=== PATIENT | male | born 2005 | race Caucasian/White ===

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

== ENCOUNTER 2024-07-11 18:45 | Emergency (ER) | payer SELFPAY ==
[2024-07-11 18:47] VITALS: BP 156/70; PULSE 87; RESP 18; TEMP 37; O2SAT 99; BMI 33.7
[2024-07-11 20:04] LABS: Absolute Lymphocyte Count 0.79 X10^3/uL (0.83-4.51); Absolute Neutrophil Count 6.1 X10^3/uL (2.0-7.7); Basophil# 0.02 X10^3/uL; Basophil% 0.3 % (0-1); Eosinophil# 0.16 X10^3/uL; Hematocrit 44.9 % (40-54); Hemoglobin 15.9 g/dL (13.0-16.5); Lymphocyte # 0.79 X10^3/ul (0.83-4.51); Lymphocyte % 10.1 % (19-41); Mean Corp Hgb Conc 35.4 g/dL (32-36); Mean Corpuscular Hgb 29.8 pg (27.0-32.0); Mean Corpuscular Volume 84.1 fL (80-94); Mean Platelet Vol. 10.4 fl (6.2-12.0); Monocyte# 0.67 X10^3/uL; Monocyte% 8.6 % (0-10); NRBC Flagged by Analyzer 0 % (0-5); Neutrophil # 6.13 X10^3/uL (2.7-7.7); Neutrophil % 78.5 % (47-70); Platelet Count 193 K/mm3 (150-450); RBC Distribution Width CV 12.1 % (11.6-14.6); RBC Distribution Width SD 36.3 fl (35.1-43.9); Red Blood Count 5.34 M/mm3 (4.6-6.2); White Blood Count 7.8 K/mm3 (4.4-11.0)
[2024-07-11 20:17] LABS: Anion Gap 8 (5-15); BUN 21 mg/dL (7-18); BUN/Creat Ratio 13.8 RATIO (10-20); Calcium,Total 9.5 mg/dL (8.5-10.1); Chloride 103 mmol/L (98-107); Creatinine, Serum 1.52 mg/dL (0.70-1.30); EST Glomerular Filtration Rate 62 mL/min (>60); Est Glom Filt Rate - Afr Amer 75 mL/min (>60); Estimated Creatinine Clearance 109.25 ml/min; Glucose 107 mg/dL (74-106); Potassium 3.9 mmol/L (3.5-5.1); Sodium Level 137 mmol/L (136-145)
[2024-07-11 21:02] VITALS: BP 154/68; PULSE 89; RESP 16; O2SAT 98
--- NOTE | 2024-07-11 21:28 | EDS_ITS ---
HPI History of Present Illness Chief Complaint: Shortness of Breath Informant: patient Narrative Narrative: Increasing cough burning in his chest with cough since yesterday. 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 Occasional tobacco. Denies asthma or COPD. Denies fevers or chills. Patient states he works for himself. Prior similar symptoms: No PFSH PFSH Medical History no medical history Home Medications ?Medication ?Instructions ?Recorded ?Last Taken ?Type NK 01/13/20 Unknown History Allergy/AdvReac Type Severity Reaction Status Date / Time amoxicillin Allergy Rash Verified 07/11/24 18:46 azithromycin (From Zithromax AdvReac DOES NOT Verified 07/11/24 18:46 Z-Dariusz) WORK Family History no significant family his Surgical History no surgical history Social History Smoking Status: Never smoker ROS ROS ED Constitutional Constitutional ED: Denies chills, fever(s) or sweats ENT ENT ED: Denies sore throat Cardiovascular Cardiovascular: Denies chest pain, leg edema, palpitations or racing heartbeat Respiratory/Chest Respiratory/Chest: Reports cough and dyspnea; Denies dyspnea on exertion Gastrointestinal Gastrointestinal: Denies abdominal pain, diarrhea, nausea or vomiting Genitourinary Genitourinary ED: Denies dysuria, hematuria or urinary frequency Musculoskeletal Musculoskeletal: Denies back pain, extremity pain or neck pain Integumentary Denies rash or wounds Neurologic Neurologic: Denies headache(s), paresthesias or weakness EXAM Physical Exam Const Vital Signs: 07/11/24 18:47 07/11/24 21:02 07/11/24 21:02 Temperature 98.6 F Temperature Source Oral Pulse Rate 87 89 Respiratory Rate 18 16 Respiratory Effort Respiratory Depth Respiratory Pattern Blood Pressure 156/70 H 154/68 H Blood Pressure Mean 98 96 Pulse Ox 99 98 98 Oxygen Delivery Method Room Air 07/11/24 21:02 07/11/24 22:22 Temperature 98.5 F Temperature Source Pulse Rate 89 Respiratory Rate 16 Respiratory Effort Normal Respiratory Depth Normal Respiratory Pattern Normal Blood Pressure 154/68 H Blood Pressure Mean 96 Pulse Ox 98 Oxygen Delivery Method Room Air Positive well nourished and well developed General Appearance ED: well developed and NAD HEENT Reports moist mucous membranes normocephalic and atraumatic Eyes General Eye ED: Yes normal appearance of both eyes Neck full ROM Chest Wall Chest: Negative for tenderness Resp normal respiratory effort and normal air movement Resp Narrative: Symmetric breath sounds Effort and Inspection: symmetric chest movement; Negative for respiratory distress Cardio regular rate, regular rhythm and no murmurs Peripheral Pulses: pulses 2+ throughout GI normal to inspection, nondistended, normoactive bowel sounds and non-tender Palpation: Negative for guarding or rebound tenderness present Extremity normal to inspection General Extremety ED: Negative for edema or tenderness General Extremity: Negative for edema Neuro oriented x3 and no sensory deficits noted Sensorium / Orientation: awake and alert Skin no rashes or lesions noted and no wounds MDM MDM MDM Narrative Medical decision making narrative: Interventions / MDM: Differential diagnosis: Chemical pneumonitis, cough Diagnosis considered but do not suspect: Pneumonia however chest x-ray negative My EKG interpretation: N/A Imaging independently reviewed and interpreted by myself: 2 view chest x-ray: No acute process. External documents reviewed: N/A Test considered but not ordered:N/A ED course: Patient vital stable nontoxic, from history concerns for chemical pneumonitis with irritants. Pulse ox 99 on room air. Nursing protocol initiated labs white count 7.8 hemoglobin 10.9 creatinine 1.52. No old for comparison. He has no recent vomiting or diarrhea. Will treat with IV fluids. COVID, influenza, RSV returned negative. 2210: Chest x-ray negative. Discussed pneumonitis with the patient. He states he does have N95 mask that we did not wear. He will wear this while working. All questions were answered. Re-evaluation: stable Disposition discussed with patient/family/significant other: Patient Case discussed with consulting clinician: N/A This note was generated with [employer] dictation software. It may contain incorrect words, spelling, and punctuation that were not noted in checking the note before signing. Lab Data Attestation: I reviewed the patient's lab results. Labs: Laboratory Results - last 24 hr 07/11/24 19:55 WBC 7.8 RBC 5.34 Hgb 15.9 Hct 44.9 MCV 84.1 MCH 29.8 MCHC 35.4 RDW Std Deviation 36.3 RDW Coeff of John 12.1 Plt Count 193 MPV 10.4 Immature Gran % (Auto) 0.500 Neut % (Auto) 78.5 H Lymph % (Auto) 10.1 L [place] % (Auto) 8.6 Eos % (Auto) 2.0 Baso % (Auto) 0.3 Absolute Neuts (auto) 6.1 Absolute Lymphs (auto) 0.79 L Nucleated RBC % 0 Sodium 137 Potassium 3.9 Chloride 103 Carbon Dioxide 26.0 Anion Gap 8 BUN 21 H Creatinine 1.52 H Estim Creat Clear Calc 109.25 Est GFR (MDRD) Af Amer 75 Est GFR (MDRD) Non-Af 62 BUN/Creatinine Ratio 13.8 Glucose 107 H Calcium 9.5 Radiography Diagnostic Testing: Clinical Impression(s) from Imaging Studies Chest X-Ray 07/11/24 21:35 IMPRESSION: No acute airspace abnormality. [facility] Triage Chief Complaint: Shortness of Breath ED Provider: Romie Vines Dx/Rx/DC Orders Clinical Impression: Acute chemical pneumonitis, Cough Instructions: ED Understanding Hypersensitivity Pneumonitis Prescriptions: No Action NK Primary Care Provider: Denise La Referrals: Denise La MD [Primary Care Provider] - 1-2 Weeks Activity Restrictions/Additional Instructions: Chest x-ray negative. Labs are stable. COVID, flu, RSV negative. Your history concerns for a chemical pneumonitis. Wear your N95 mask while working. Follow- up with your doctor. Print Language: Lao Disposition Disposition: Home, Self Care Discharge Date/Time: 07/11/24 22:30
[2024-07-11] MEDS: 0.9% Normal Saline (1000mL) 1,000 ML 999 ML IV (21:33)
--- NOTE | 2024-07-11 21:35 | RAD_ITS ---
PROCEDURE: CHEST PA AND LATERAL REASON FOR EXAM: Chest pain, cough TECHNIQUE: Two views of the chest COMPARISON: None. FINDINGS: Cardiomediastinal silhouette is within normal limits. Lungs are clear. No sizable pneumothorax. RAD/Chest PA and Lateral IMPRESSION: No acute airspace abnormality. Reading Location: [facility]
[2024-07-11 22:22] VITALS: BP 154/68; PULSE 89; RESP 16; TEMP 36.9; O2SAT 98
== END 2024-07-11 22:30 | disposition home or self-care (01) ==
PROVIDERS: Emergency Provider Emergency Medicine; PCP Family Medicine; Visit Provider Emergency Medicine
DX: R06.02 Shortness of breath (principal); J68.0 Bronchitis and pneumonitis due to chemicals, gases, fumes and vapors; R05.9 Cough, unspecified; T59.91XA Toxic effect of unspecified gases, fumes and vapors, accidental (unintentional), initial encounter
CPT/HCPCS: 71046; 80048; 85025; 87631; 94760; 96360; 99283